=== PATIENT | male | born 1960 | race African-American/Black ===

== ENCOUNTER 2018-12-09 10:36 | Inpatient (IN) | payer MEDICAID ==
[~2018-12-09] VITALS: Ht 180.3 cm; Wt 93.4 kg
[2018-12-09] MEDS ORDERED: SODIUM CHLORIDE 0.9% 1,000 ML IV ONE (11:41)
[2018-12-09] MEDS ORDERED: ONDANSETRON HCL 4MG/2ML INJ IV STA (11:41)
[2018-12-09] MEDS ORDERED: PANTOPRAZOLE 80 MG in SODIUM CHLORIDE 0.9% 100 ML IV STA (11:41)
[2018-12-09] MEDS ORDERED: PANTOPRAZOLE SODIUM 40 MG/VIAL IV STA (11:41)
[2018-12-09] MEDS ORDERED: PANTOPRAZOLE SODIUM 40 MG/VIAL IV ONE (12:14)
[2018-12-09 12:22] LABS: BASOPHILS % 0.5 % (0.0-2.0); HEMATOCRIT. 42.6 % (42.0-52.0); HEMOGLOBIN. 14.4 g/dL (14.0-18.0); LYMPHOCYTES % 18.1 % (20.0-50.0); MEAN CORPUSCULAR HEMOGLOBIN 33.1 pg (28.0-32.0); MEAN CORPUSCULAR VOLUME 97.8 fL (80.0-94.0); MEAN PLATELET VOLUME 8.6 fl (7.4-10.4); MONOCYTES % 4.4 % (2.0-8.0); PLATELET 240 x1000/uL (130-400); RED BLOOD CELL COUNT 4.35 mill/uL (4.7-6.1); RED CELL DISTRIBUTION WIDTH 14.9 % (11.6-14.6)
[2018-12-09 12:30] LABS: CHLORIDE 108 mEq/L (98-107)
[2018-12-09 12:32] LABS: PARTIAL THROMBOPLASTIN TIME 27.1 sec (23.4-31.0); PROTHROMBIN TIME 10.1 sec (9.6-11.0)
[2018-12-09] MEDS ORDERED: VISCOUS LIDOCAINE 2% 15 ML UDC MM STA (14:09)
[2018-12-09] MEDS ORDERED: MAGNESIUM/ALUMINUM HYDROXIDE/SIMETHICONE 30ML UDC PO ONE (14:15)
[2018-12-09 15:19] VITALS: BP 148/79
[2018-12-09] MEDS ORDERED: ACETAMINOPHEN 325MG TABLET PO PRN (15:30)
[2018-12-09] MEDS ORDERED: ONDANSETRON HCL 4MG/2ML INJ IV PRN (15:30)
[2018-12-09 19:38] LABS: CLARITY URINE CLEAR (CLEAR); COLOR URINE YELLOW (YELLOW); KETONES URINE NEGATIVE (NEGATIVE); LEUKOCYTE ESTERASE URINE NEGATIVE (NEGATIVE); NITRITE URINE NEGATIVE (NEGATIVE); OCCULT BLOOD URINE NEGATIVE (NEGATIVE); PROTEIN URINE NEGATIVE (NEGATIVE); SPECIFIC GRAVITY URINE 1.022 (1.005-1.030); UROBILINOGEN URINE 0.2 E.U./dL (0.2-1.0)
[2018-12-09 19:52] LABS: *AMPHETAMINES SCREEN URINE NEGATIVE (NEGATIVE); *BARBITURATES SCREEN URINE NEGATIVE (NEGATIVE); *COCAINE SCREEN URINE NEGATIVE (NEGATIVE); CANNABINOID URINE SCREEN PRESUMTIVE POSITIVE (NEGATIVE); METHADONE URINE SCREEN NEGATIVE (NEGATIVE); OPIATES URINE SCREEN NEGATIVE (NEGATIVE); PHENCYCLIDINE URINE SCREEN NEGATIVE (NEGATIVE)
[2018-12-09 19:53] LABS: *BENZODIAZEPINES SCREEN URINE NEGATIVE (NEGATIVE)
[2018-12-09 20:00] VITALS: BP 140/71
[2018-12-09] MEDS: PANTOPRAZOLE SODIUM 40 MG/VIAL IV SCH (21:04)
[2018-12-10] VITALS: BP 107/49
[2018-12-10 04:00] VITALS: BP 114/72
[2018-12-10 07:58] LABS: BASOPHILS % 0.3 % (0.0-2.0); EOSINOPHILS % 0.2 % (0.0-5.0); HEMATOCRIT. 41.8 % (42.0-52.0); HEMOGLOBIN. 14.3 g/dL (14.0-18.0); LYMPHOCYTES % 26.1 % (20.0-50.0); MEAN CORPUSCULAR HEMOGLOBIN 33.5 pg (28.0-32.0); MEAN CORPUSCULAR VOLUME 97.7 fL (80.0-94.0); MEAN PLATELET VOLUME 9.1 fl (7.4-10.4); MONOCYTES % 6.3 % (2.0-8.0); NEUTROPHILS % 67.1 % (40.0-76.0); PLATELET 250 x1000/uL (130-400); RED BLOOD CELL COUNT 4.27 mill/uL (4.7-6.1); RED CELL DISTRIBUTION WIDTH 14.4 % (11.6-14.6)
[2018-12-10 07:59] LABS: CHLORIDE 106 mEq/L (98-107)
[2018-12-10 08:00] VITALS: BP 124/72
[2018-12-10 08:05] LABS: AMYLASE 86 IU/L (25-115)
[2018-12-10] MEDS: PANTOPRAZOLE SODIUM 40 MG/VIAL IV SCH (09:31)
[2018-12-10 12:00] VITALS: BP 132/69
[2018-12-10 13:39] VITALS: BP 141/96
== END 2018-12-10 14:20 | disposition home or self-care (01) | DRG 241 ==
LOC: ER 10:36 → 8WST 13:36 → EDBEDREQTM 13:38 → EDBEDREQ 13:38 → CANRESERV 14:11 → ENRESERV 14:11
PROVIDERS: ADMIT Internal Medicine; ATTEND Internal Medicine
DX: K29.21 Alcoholic gastritis with bleeding (principal); E87.8 Other disorders of electrolyte and fluid balance, not elsewhere classified; E11.9 Type 2 diabetes mellitus without complications; E78.00 Pure hypercholesterolemia, unspecified; D72.829 Elevated white blood cell count, unspecified; E78.5 Hyperlipidemia, unspecified; F12.90 Cannabis use, unspecified, uncomplicated; I10 Essential (primary) hypertension; K25.4 Chronic or unspecified gastric ulcer with hemorrhage; T39.395A Adverse effect of other nonsteroidal anti-inflammatory drugs [NSAID], initial encounter; Z87.891 Personal history of nicotine dependence; Y92.89 Other specified places as the place of occurrence of the external cause; Z79.84 Long term (current) use of oral hypoglycemic drugs
CPT/HCPCS: 36415; 71045; 76700; 80048; 80305; 82150; 82270; 84484; 86850; 86900; 96361; 96365; 96375; 99291; C9113; J2405; J7030; J7050

== ENCOUNTER 2022-02-10 07:00 | Emergency (ER) | payer MEDICAID ==
[~2022-02-10] VITALS: Ht 177.8 cm; Wt 92.0 kg
[2022-02-10 08:35] LABS: HEMATOCRIT. 45.4 % (42.0-52.0); HEMOGLOBIN. 15.3 g/dL (14.0-18.0); MEAN CORPUSCULAR HEMOGLOBIN 32.9 pg (28.0-32.0); MEAN CORPUSCULAR VOLUME 97.4 fL (80.0-94.0); MEAN PLATELET VOLUME 8.2 fl (7.4-10.4); PLATELET 234 x1000/uL (130-400); RED BLOOD CELL COUNT 4.66 mill/uL (4.7-6.1); RED CELL DISTRIBUTION WIDTH 14.5 % (11.6-14.6)
[2022-02-10 08:38] LABS: CLARITY URINE CLEAR (CLEAR); COLOR URINE DARK YELLOW (YELLOW); KETONES URINE TRACE (NEGATIVE); LEUKOCYTE ESTERASE URINE NEGATIVE (NEGATIVE); NITRITE URINE NEGATIVE (NEGATIVE); OCCULT BLOOD URINE TRACE (NEGATIVE); PH URINE 5.5 (4.5-8.0); PROTEIN URINE 3+ (NEGATIVE); SPECIFIC GRAVITY URINE 1.033 (1.005-1.030)
[2022-02-10 08:44] LABS: CHLORIDE 101 mEq/L (98-107)
[2022-02-10] MEDS ORDERED: ACETAMINOPHEN 325MG TABLET PO ONE (08:45)
[2022-02-10 08:56] LABS: PLATELET ESTIMATE NORMAL
[2022-02-10] MEDS ORDERED: IBUP-2030 PO (09:29)
[2022-02-10] MEDS ORDERED: ONDA4TAB50 PO (09:29)
[2022-02-10 09:30] VITALS: BP 138/58
== END 2022-02-10 09:58 | disposition home or self-care (01) ==
LOC: ER 07:00 → CANBEDREQ 02-11 08:28
DX: B34.9 Viral infection, unspecified (principal); Z20.822 Contact with and (suspected) exposure to COVID-19; I10 Essential (primary) hypertension; E11.9 Type 2 diabetes mellitus without complications; Z79.899 Other long term (current) drug therapy; E78.5 Hyperlipidemia, unspecified
CPT/HCPCS: 36415; 71045; 80053; 81003; 83605; 84145; 85025; 85610; 87040; 87426; 93005; 99285; C9803